=== PATIENT | female | born 1960 | race Caucasian/White ===

== ENCOUNTER 2018-07-01 08:30 | Outpatient (RCR) | payer MEDICAID, SELFPAY | END 2018-07-01 08:35 | disposition home or self-care (01) | LOC: PT 08:30 | PROVIDERS: Visit Provider Internal Medicine | DX: M54.5 Low back pain (principal); M54.31 Sciatica, right side | CPT/HCPCS: 97010; 97012; 97014; 97110; 97163; G0283 ==

== ENCOUNTER → 2018-10-28 09:38 | Outpatient (CLI) | payer MEDICAID, SELFPAY ==
--- NOTE | 2018-10-28 10:00 | XR_ITS ---
PROCEDURE: XR CHEST 2V CLINICAL HISTORY: COUGH, CONGESTION COMPARISON: No exams were available for comparison FINDINGS: The cardiomediastinal silhouette and pulmonary vascularity are within normal limits. There are increased markings in the right infrahilar region consistent with an area of infiltrate. The this may be in the right lower lobe No acute bony abnormalities. IMPRESSION: Right lower lobe infiltrate Dictated by: Reymundo Tovar MD 10/28/2018 10:22 Electronically signed by Reymundo Tovar MD in [place] 10/28/2018 10:22
--- NOTE | 2018-10-28 10:24 | ECG_ITS ---
APPROVED REPORT Exam: Resting ECG HR:59 bpm ECG Measurements Heart Rate 59 AXES LA 138 P 52 QRSd 72 QRS 37 QT 426 T 39 QTc 421 <Conclusion> Sinus bradycardia Otherwise normal ECG Electronically signed by : Shay Souza, 10/28/2018 11:50:31
== END ==
PROVIDERS: PCP Internal Medicine; Visit Provider Internal Medicine
DX: Z01.818 Encounter for other preprocedural examination (principal)
CPT/HCPCS: 71046; 93005

== ENCOUNTER → 2018-12-10 14:15 | Outpatient (CLI) | payer OTHER, SELFPAY ==
--- NOTE | 2018-12-10 14:20 | CT_ITS ---
PROCEDURE: CT CHEST WO CON Abnormal chest x-ray, dry cough CLINICAL INDICATION: COUGH,ABN CXR COMPARISON: XR CHEST 2V from 10/28/2018 TECHNIQUE: Axial images obtained with sagittal and coronal reformats. All CT scans at the facility use one or more dose reduction, viz: automated exposure control, ma/kV adjustment per patient size (including targeted exams where dose is matched to indication, i.e. head), or iterative reconstruction technique. FINDINGS: There is a small area of decreased density in the left lobe of the thyroid gland anteriorly at 9 mm. There is scattered small axillary and mediastinal lymph nodes. Normal heart size. There is some coronary artery calcification noted. No evidence of pericardial effusion. Small hiatal hernia suspected.. 5 mm noncalcified nodules present in the right lower lobe laterally image 39 series 3. 4 mm nodule right lower lobe anteriorly image 35 series 3. No effusions or infiltrates. Previously noted right infrahilar infiltrate has resolved. No central obstructing lesion. No acute bony anomalies. There is a 10 mm nodular opacity in the upper aspect of the left breast laterally. This may only be due to asymmetric fibroglandular tissue. Suggest correlation with mammogram and possible ultrasound. Upper abdomen: There is a 3.7 cm hypodense lesion in the central aspect of the liver consistent with a hepatic cyst. There is nonobstructing 2 mm stone in the mid polar region of the left kidney. IMPRESSION: 1. No acute finding 2. There is a noncalcified 3 mm and 5 mm nodule in the right lower lobe. These are nonspecific. Consider six-month follow-up to confirm short term stability. A the 3. Possible left breast nodule. Please correlate with mammogram and possible ultrasound Dictated by: Reymundo Tovar MD 12/11/2018 06:58 Electronically signed by Reymundo Tovar MD in [place] 12/11/2018 06:58
== END ==
PROVIDERS: PCP Internal Medicine; Visit Provider Internal Medicine
DX: R05 Cough (principal); R93.89 Abnormal findings on diagnostic imaging of other specified body structures
CPT/HCPCS: 71250

== ENCOUNTER → 2019-07-28 15:22 | Outpatient (CLI) | payer OTHER, SELFPAY ==
--- NOTE | 2019-07-28 15:33 | XR_ITS ---
PROCEDURE: XR FINGER LT MIN 2V CLINICAL INDICATION: LT THUMB PAIN COMPARISON: No exams were available for comparison FINDINGS: No fracture or dislocation. No lytic or blastic change. There is normal mineralization. Minimal osteoarthritic changes are present at 1st metacarpophalangeal joint and interphalangeal joint with a small well-circumscribed calcific density the dorsal lateral aspect the interphalangeal joint which could be due to an old avulsion fracture. No acute fracture or dislocation evident. Other findings:None. IMPRESSION: Osteoarthritic change with suspected old avulsion fracture at the interphalangeal joint Dictated by: Reymundo Tovar MD 07/28/2019 15:49 Electronically signed by Reymundo Tovar MD in [place] 07/28/2019 15:49
== END ==
PROVIDERS: PCP Internal Medicine; Visit Provider Internal Medicine
DX: M79.645 Pain in left finger(s) (principal)
CPT/HCPCS: 73140

== ENCOUNTER 2020-01-03 10:31 | Emergency (ER) | payer OTHER, SELFPAY ==
[2020-01-03 10:45] VITALS: BP 129/85; PULSE 83; RESP 20; TEMP 36.7; O2SAT 98; BMI 23.9
--- NOTE | 2020-01-03 11:12 | HMH.EDUTC ---
[facility] Disposition Clinical Impression: Maxillary sinusitis, acute Qualifiers: Recurrence: non-recurrent Qualified Code(s): J01.00 - Acute maxillary sinusitis, unspecified Disposition: Home, Self-Care Condition on Discharge: Good Instructions: Sinusitis, DI for Sinusitis Additional Instructions: Start antibiotic patient to take as ordered for a full length of time even if you feel better. Sinus infections do not get better overnight. It may take 2-3 days to notice much improvement so be sure to use conservative measures as discussed for symptoms. Flonase 1 spray each nostril daily to help with nasal congestion, sinus and ear pressure/information Increase fluids Humidifier/vaporizer as needed Tylenol and ibuprofen as needed for fever or pain. If symptoms do not improve or get worse return or be seen in the ER Follow-up with primary care this week self isolate until covid test results are known Prescriptions: Fluticasone Propionate [Flonase 50mcg nasal spray 16gm] 1 spr NS DAILY 14 Days #1 bottle Transmission Status: Pending to [facility] Azithromycin [Zithromax 250mg tab] 250 mg PO DIRECTED #6 tab Transmission Status: Pending to [facility] Referrals: Shay Souza [Primary Care Provider] - Time of Disposition: 11:22 Medical Decision Making - Enoch Inquiry Pt receiving controlled substance: No Vital Signs: 01/03/20 10:45 Temperature 98.0 F Temperature Source Oral Pulse Rate [Right Brachial] 83 Respiratory Rate 20 Blood Pressure [Right Arm] 129/85 Blood Pressure Mean [Right Arm] 99 Blood Pressure Source [Right Arm] Automatic Cuff Blood Pressure Position [Right Arm] Sitting 02 Sat by Pulse Oximetry 98 Oxygen Delivery Method Room Air Orders (Tests/Meds): ORDERS Category Date Time Status Covid-19 Nasal PCR Sendout [facility] 01/03/20 11:12 Ordered [facility] HPI - General Chief complaint: Urgent Treatment Center Stated complaint: sinus pain Time Seen by Provider: 01/03/20 11:12 Mode of Arrival: Ambulatory Source of Information: Patient Limitations: No Limitations Description of Symptoms (Recalled from Triage Doc. by RN): PATIENT C/O SINUS PRESSURE/PAIN SINCE SUNDAY HEENT Symptoms (Recalled from RN notes): Yes Resp Symptoms (Recalled from RN notes): No Skin Symptoms (Recalled from RN notes): No MS Symptoms (Recalled from RN notes): No Functional Status (Recalled from RN notes): WNL - History of Present Illness Provider Complaint: 59 yr old female presents for sinus pressure, sinus congestion with yellow drainage and cough since . - Related Data Home Medications Medication Instructions Recorded Confirmed estradioL [Estradiol (Twice 1 each TD WEEKLY 01/03/20 01/03/20 Weekly)] Previous Rx's Medication Instructions Recorded Azithromycin [Zithromax 250mg 250 mg PO DIRECTED #6 tab 01/03/20 tab] Fluticasone Propionate [Flonase 1 spr NS DAILY 14 Days #1 bottle 01/03/20 50mcg nasal spray 16gm] Allergies Allergy/AdvReac Type Severity Reaction Status Date / Time No Known Allergies Allergy Verified 01/03/20 11:05 - Worker's Comp Is this a Worker's Comp case?: No [facility] History - Hepatitis A Screen Drug use history?: No High risk sexual behaviors?: No History of sexually transmitted infection?: No Currently employed?: No Childcare worker?: No Do you have indoor plumbing?: Yes Do you have electricity?: Yes Attestation statement:: This patient has been screened for Hepatitis A risk factors. I have reviewed the patient's past medical history: Yes - Social History Alcohol Intake: never Occupational Status: other ROS Obtained: Yes Systems reviewed as appropriate & no additional complaints - Constitutional Constitutional: Reports system reviewed and no additional complaints, except as docu, Denies fever(s) - Eyes Eyes: Reports system reviewed and no additional complaints, except as docu, Denies blurry vision - ENT Ear
[2020-01-03 11:30] VITALS: BP 129/85; PULSE 83; RESP 20; TEMP 36.7; O2SAT 98
[2020-01-04 09:03] LABS: Covid-19 Nasal PCR Sendout UK Not Detected
== END 2020-01-03 11:33 | disposition home or self-care (01) ==
PROVIDERS: Emergency Provider Nurse Practitioner Family; PCP Internal Medicine
DX: J01.00 Acute maxillary sinusitis, unspecified (principal); Z20.828 Contact with and (suspected) exposure to other viral communicable diseases
CPT/HCPCS: 99201; U0003

== ENCOUNTER 2020-04-29 12:03 | Emergency (ER) | payer OTHER, SELFPAY ==
[2020-04-29] VITALS (12 sets, daily range): BP systolic 120–138; BP diastolic 63–97; PULSE 70–95; RESP 17–18; TEMP 36.7; O2SAT 96–100; BMI 23.0
[2020-04-29 12:46] LABS: Sodium 140 mmol/L (136-145)
[2020-04-29 12:47] LABS: Basophils % 0.2 % (0.1-2.0); Eosinophils % 0.2 % (0.1-12.0); Hematocrit 38.6 % (37.0-47.0); Hemoglobin 12.8 g/dL (12.2-16.2); Lymphocytes # 2.4 K/mm3 (0.7-4.5); MANUAL DIFFERENTIAL MANUAL DIFFERENTIAL (MANUAL DIFF); Mean Corpuscular Hemoglobin 31.4 pg (27.0-31.2); Mean Corpuscular Volume 95.2 fl (81-99); Mean Platelet Volume 8.7 fl (7.4-10.4); Monocytes # 0.5 K/mm3 (0.1-1.0); Monocytes % 2.8 % (1.7-9.3); Neutrophils % 82.8 % (37.0-80.0); Platelet Count 251 K/mm3 (142-424); Potassium 3.7 mmoL/L (3.5-5.1); Red Blood Count 4.06 M/mm3 (4.20-5.40); Red Cell Distribution Width 13.2 % (11.5-17.5); White Blood Count 16.9 K/mm3 (4.8-10.8)
[2020-04-29 12:48] LABS: Chloride 109 mmol/L (98-107)
[2020-04-29 12:49] LABS: Alanine Aminotransferase 13 U/L (12-78); Albumin Level 4.1 g/dl (3.5-5.0); Albumin/Globulin Ratio 1.3 (1.1-1.8); Alkaline Phosphatase 96 U/L (38-126); Anion Gap 10.7 mEq/L (5-15); Aspartate Amino Transferase 25 U/L (14-36); Bilirubin,Total 0.4 mg/dl (0.2-1.3); Blood Urea Nitrogen 19 mg/dl (7-17); Carbon Dioxide 24 mmol/L (22.0-30.0); Creatinine Clearance Estimated 70 mL/min (50-200); Estimated Glomerular Filt Rate 73 ml/min (>60); GFR (African American) 89 ML/MIN (>60); Globulin 3.1 g/dL (1.3-3.2); Total Protein,Serum 7.2 g/dl (6.3-8.2)
[2020-04-29 12:49] LABS: Microscopic, Urine URINE MICROSCOPIC (MICROSCOPIC)
[2020-04-29 12:50] LABS: Calcium 9.5 mg/dl (8.4-10.2); Glucose 168 mg/dl (74-100)
--- NOTE | 2020-04-29 12:50 | CT_ITS ---
PROCEDURE: CT ABDOMEN PELVIS W CON CLINICAL INDICATION: LLQ pain Left lower quadrant pain COMPARISON: CT CT CHEST WO CON from 12/10/2018 TECHNIQUE: IV Contrast: 75ML Isovue 370 Oral Contrast None Axial images obtained with sagittal and coronal reformats. All CT scans at the facility use one or more dose reduction, viz: automated exposure control, ma/kV adjustment per patient size (including targeted exams where dose is matched to indication, i.e. head), or iterative reconstruction technique. FINDINGS: LOWER THORAX: There is a small hiatal hernia ABDOMEN & PELVIS: A 4 cm cyst is present in the central aspect of the liver. This is a only slightly larger previously measuring 3.7 cm. In addition, there is a 5 mm hypodensity in the right hepatic lobe medially. This may also be due to small cyst too small to categorize. Stability may be confirmed with follow-up. The liver, adrenal glands, pancreas, have an unremarkable appearance. There is a partially duplicated left renal collecting system which may joint in the mid ureteral area. This is somewhat difficult to ascertain due to the lack of opacification of the left ureter. There is mild hydronephrosis and mild dilatation of both proximal ureters greater in the lower pole moiety. A stone is present in the distal left ureter just proximal to the ureteral vesicle junction. The stone measures approximately 2 mm. There is mild stranding of the left perinephric renal fat No intestinal obstruction or free air. There is a mild amount of retained colonic feces. No evidence of appendicitis. No evidence of diverticulitis. IMPRESSION: 1. 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 2. Moderate amount of retained colonic feces. 3. 4 cm hepatic cyst. 7 mm low-attenuation lesion medial aspect right hepatic lobe indeterminate. Consider short-term follow-up to confirm stability. Dictated by: Reymundo Tovar MD 04/29/2020 16:36 Reymundo Tovar MD in [place] 04/29/2020 16:36
[2020-04-29 12:53] LABS: Appearance,Urine CLEAR (Clear); Bilirubin,Urine Negative (Negative); Blood, Urine 3+ (Negative); Color,Urine YELLOW (Yellow); Glucose,Urine (UA) Negative (Negative); Ketones,Urine Negative (Negative); Leukocyte Esterase,Urine Negative (Negative); Nitrate,Urine Negative (Negative); PH,Urine 6.5 (5.0-8.5); Protein,Urine Negative (Negative); Specific Gravity, Urine 1.025 (1.005-1.030); Urobilinogen,Urine 0.2 EU/dl (0.2)
[2020-04-29 12:58] LABS: RBC,Urine 20-50 #/hpf (0-3)
[2020-04-29 12:58] LABS: Lymphocytes % 12 % (10-50); Monocytes % 2 % (2-9); Neutrophils % 86 % (42-76); Platelet Estimate Normal; RBC Morphology Normal; Total Cells Counted 100
[2020-04-29 13:07] LABS: Lipase 146 U/L (23-300)
--- NOTE | 2020-04-29 13:15 | HMH.EDGENADL ---
ED Disposition Clinical Impression: Left ureteral calculus Disposition: Home, Self-Care Condition on Discharge: Good Instructions: DI for Kidney Stones Additional Instructions: Additional instructions for KIDNEY STONE (URETERAL CALCULUS): See Dr. Craft as soon as possible for further evaluation. Drink plenty of fluids. Strain your urine and save any stones you catch. Return immediately if you develop a fever or have uncontrollable vomiting or uncontrollable pain. Additional instructions for CONTROLLED SUBSTANCES: You have been prescribed a medication that is a controlled substance. Controlled substances include pain medications known as opiates and sedative nerve medications known as benzodiazepines. Tramadol, fioricet, and gabapentin are also controlled substances. Some common opiates include: Codeine (such as Tylenol #3) Hydrocodone (Vicodin, Lortab, Lorcet, [place]) Oxycodone (Percocet, Percodan, Oxycodone, Oxy IR) Some common benzodiazepines include: Diazepam (Valium) Lorazepam (Ativan) Alprazolam (Xanax) Clonazepam (Klonopin) Oxazepam (Serax) All of these controlled substances are highly addictive and frequently abused. Misuse can and frequently does lead to addiction as well as overdose and . Medication should be stored in a locked cabinet or other secure storage unit. Do not store the medication in a motor vehicle. Short term supplies, 3 days or less, are prescribed because of the highly addictive nature of the medication. Any of the controlled substance medication NOT taken should be disposed of properly and NOT SAVED. The recommended method of disposing of unused medications is: Place the medicines in a sealable plastic bag. If the medicine is a solid, crush it or add water to dissolve it. Add something undesirable (cat litter, coffee grounds, etc.) Dispose of sealed bag in household trash Do not flush or pour unused medicines down a sink or drain. Controlled substances should not be shared, given away or sold. Because of the addictive nature and frequent abuse, these medications are sometimes stolen. These medications should be kept in a safe place where they cannot be stolen. Do not keep them in your car or purse. Lost or stolen prescriptions for controlled substances WILL NOT BE REFILLED in this emergency department, regardless of whether a police report was filed. Prescriptions: Oxycodone HCl/Acetaminophen [Percocet 5/325mg tablet] 1 tab PO Q6HP PRN #10 tablet PRN Reason: Moderate To Severe Pain Transmission Status: Sent to [facility] Tamsulosin HCl [Flomax 0.4mg capsule] 0.4 mg PO HS #10 cap.er.24h Transmission Status: Pending to [facility] Ondansetron [Zofran 4mg ODT] 4 mg PO TIDP PRN #10 tab.rapdis PRN Reason: Nausea And Vomiting Transmission Status: Pending to [facility] Referrals: Shay Souza [Primary Care Provider] - - Critical Care Critical Care Time: No Attestation: On 04/29/20, the high probability of a clinically significant, sudden or life threatening deterioration of the following system(s) required my full and direct attention, intervention and personal management. The time I documented below is in addition to time spent performing reported procedures but includes the following listed in this critical care notation. Medical Decision Making - Enoch Inquiry Pt receiving controlled substance: Yes Enoch was queried for this patient: Yes Risks and benefits of using a controlled substance: were discussed with pt by me Vital Signs: 04/29/20 12:04 04/29/20 12:20 04/29/20 12:36 Temperature 98.1 F Temperature Source Oral Pulse Rate 91 H 82 Pulse Rate [Right] 81 Respiratory Rate 18 Blood Pressure Blood Pressure [Right Arm] 138/87 Blood Pressure Mean Blood Pressure Mean [Right Arm] 104 02 Sat by Pulse Oximetry 98 100 100 04/29/20 12:37 04/29/20 12:38 04/29/20 12:39 Temperature Temperature
== END 2020-04-29 14:29 | disposition home or self-care (01) ==
PROVIDERS: Emergency Provider Emergency Medicine; PCP Internal Medicine
DX: N20.1 Calculus of ureter (principal)
CPT/HCPCS: 74177; 80053; 81001; 83690; 85007; 85025; 96374; 99282; J2405; Q9967

== ENCOUNTER → 2020-10-13 12:46 | Outpatient (CLI) | payer OTHER, SELFPAY ==
--- NOTE | 2020-10-13 12:53 | CT_ITS ---
PROCEDURE: CT CHEST WO CON CLINICAL INDICATION: LUNG NODULES COMPARISON: CT CT CHEST WO CON from 12/10/2018 TECHNIQUE: Axial images obtained with sagittal and coronal reformats. All CT scans at the facility use one or more dose reduction, viz: automated exposure control, ma/kV adjustment per patient size (including targeted exams where dose is matched to indication, i.e. head), or iterative reconstruction technique. FINDINGS: HEART AND MEDIASTINAL STRUCTURES: No change left thyroid nodule. Minimal coronary artery calcification. Small hiatal hernia. Small aortopulmonic lymph nodes not significantly changed. LUNGS AND PLEURAL SPACES: Stable 5 mm right lower lobe nodule 3/43. Stable 3 mm right lower lobe nodule 3/39. No new nodules evident. BONY STRUCTURES: No acute bony abnormalities apparent. UPPER ABDOMEN: 4.3 x 3.6 cm cyst within the central aspect of the liver in the right hepatic lobe slightly larger from the previous exam ADDITIONAL FINDINGS: Small nodes are present in the left axilla as before IMPRESSION: Stable CT appearance of the chest. No change in the 2 small right lower lobe pulmonary nodules. Other nonacute findings as described above. Dictated by: Reymundo Tovar MD 10/14/2020 08:52 Reymundo Tovar MD in [place] 10/14/2020 08:52
== END ==
PROVIDERS: PCP Internal Medicine; Visit Provider Internal Medicine
DX: R91.8 Other nonspecific abnormal finding of lung field (principal)
CPT/HCPCS: 71250

== ENCOUNTER 2022-01-06 10:54 | Emergency (ER) | payer OTHER, SELFPAY ==
[2022-01-06 13:30] VITALS: BP 125/82; PULSE 91; RESP 18; TEMP 36.9; O2SAT 99; BMI 24.0
--- NOTE | 2022-01-06 13:42 | EXP.UTC ---
Discharge Plan Disposition Patient Disposition: Home, Self-Care Condition: Good Prescriptions Prescriptions: New benzonatate [benzonatate] 100 mg capsule 100 mg PO TIDP PRN (Reason: Cough) Qty: 30 0RF oseltamivir [Tamiflu] 75 mg capsule 75 mg PO BID Qty: 10 0RF ondansetron 4 mg Tablet,Disintegrating 4 mg PO Q8H PRN (Reason: Nausea) Qty: 12 0RF No Action progesterone micronized 100 mg capsule 100 mg PO DAILY Rx Instructions: off 7 days; repeat cycle estradiol 1 EACH patch semiweekly 1 each TD WEEKLY Rx Instructions: TWICE WEEKLY fluticasone propionate 120 SPR/BOT bottle 1 spr NS DAILY 14 Days Qty: 1 0RF Referrals Follow up/Referrals: Shay Souza MD [Primary Care Provider] - See instructions Activity Restrictions/Add. Instructions Additional Instructions/Restrictions: Drink plenty of fluids. Take tylenol or ibuprofen for pain or fever. Take the medications as directed. Follow up with your regular doctor. GO TO THE ER FOR ANY WORSENING SYMPTOMS Clinical Impressions Clinical Impression: Influenza A Instructions Patient Instructions: DI for Influenza -- Adult, Oseltamivir Discharge ED Provider: Cesar Puckett [facility] General Stated complaint: congestion, sore throat, cough, fever Time Seen by Provider: 01/06/22 13:42 History of Present Illness Provider Complaint: He states that for the past 2 days he has had a sore throat, chills, fever, and a cough. Related Data Home Medications Medication Instructions Recorded Confirmed estradiol 0.025 mg/24 hr 1 each TD WEEKLY HORMONE 01/03/20 05/18/20 semiweekly transdermal patch progesterone micronized 100 mg 100 mg PO DAILY 05/18/20 05/18/20 capsule Previous Rx's Medication Instructions Recorded fluticasone propionate 50 1 spr NS DAILY 14 days ##1 01/03/20 mcg/actuation nasal spray,suspension benzonatate 100 mg capsule 100 mg PO TIDP PRN Cough #30 caps 01/06/22 ondansetron 4 mg disintegrating 4 mg PO Q8H PRN Nausea #12 tabs 01/06/22 tablet oseltamivir 75 mg capsule (Tamiflu) 75 mg PO BID #10 caps 01/06/22 Allergies Allergy/AdvReac Type Severity Reaction Status Date / Time No Known Allergies Allergy Verified 01/03/20 11:05 [facility] Medical History No significant past medical history Social History Smoking Status: Never smoker alcohol intake: never substance use type: denies use current occupational status: other Travel in the last 8 weeks: None household members: family housing: house ROS Obtained: Yes All systems reviewed & no additional complaints except as documented Constitutional Constitutional: Reports chills and Reports fever(s) Eyes Eyes: Denies eye discharge ENT Ears, Nose, Mouth, and Throat: Reports as per HPI Cardiovascular Cardiovascular: Denies chest pain Respiratory Respiratory: Denies chest congestion and Reports cough Gastrointestinal Gastrointestingal: Reports nausea; Denies abdominal pain, constipation, cramping, diarrhea or vomiting Musculoskeletal Musculoskeletal: Denies arthralgias Integumentary/Breasts Skin/Breast: Denies rash Neurologic Neurologic: Denies paresthesias Physical Exam General General appearance: alert and in no apparent distress Head Head exam: atraumatic, normocephalic and normal inspection Eye Eye exam: Present normal appearance, PERRL and EOMI ENT ENT exam: Present normal exam, normal oropharynx, mucous membranes moist, TM's normal bilaterally and normal external ear exam Neck Neck exam: Present normal inspection, full ROM and trachea midline; Absent meningismus or lymphadenopathy Chest Chest inspection: Present normal inspection and symmetric chest wall rise; Absent tenderness Respiratory Respiratory exam: Present normal lung sounds bilaterally; Absent respiratory distress Cardiovascular Card
[2022-01-06 13:43] LABS: UTC Influenza A Antigen Positive (Negative); UTC Influenza B Antigen Negative (Negative)
[2022-01-06 13:47] VITALS: BP 125/82; PULSE 91; RESP 18; TEMP 36.9; O2SAT 99
== END 2022-01-06 14:09 | disposition home or self-care (01) ==
PROVIDERS: Emergency Provider Nurse Practitioner Family; PCP Internal Medicine
DX: J10.1 Influenza due to other identified influenza virus with other respiratory manifestations (principal)
CPT/HCPCS: 87804; 99212; G0463

== ENCOUNTER → 2022-05-08 07:54 | Outpatient (CLI) | payer OTHER, SELFPAY ==
--- NOTE | 2022-05-08 08:03 | US_ITS ---
FINAL REPORT TECHNIQUE: Sonographic images of the abdomen were obtained in all four quadrants. CLINICAL HISTORY: FLANK PAIN, LLQ PAIN FINDINGS: LIVER: Homogeneous. There is a 4.5 cm cystic lesion in the liver. No other lesion is identified. GALLBLADDER: There are small echogenic foci along the gallbladder wall, some of which are non dependent and favored to represent small polyps. No shadowing gallstones are identified. There is no wall thickening or pericholecystic fluid. The common duct measures 3 mm. This is within normal limits for age. PANCREAS: Unremarkable. RIGHT KIDNEY: 10.2 cm. No hydronephrosis, mass or stone. LEFT KIDNEY: 10.0 cm. There are small left renal cysts. There is no hydronephrosis. SPLEEN: 8.4 cm. No focal splenic lesion. AORTA/IVC: No abdominal aortic aneurysm. Visualized IVC within normal limits. OTHER: No ascites. IMPRESSION: 1. Hepatic cyst and left renal cysts. 2. Probable small gallbladder polyps. Reviewed, Interpreted and Dictated by Marizol Segundo MD Transcribed by Jerrica Gaytan Authenticated and [facility]
--- NOTE | 2022-05-08 08:03 | XR_ITS ---
FINAL REPORT CLINICAL HISTORY: LUNG NODULE COMPARISON: October 2018 FINDINGS: Two views of the chest were obtained. The heart size and pulmonary vascularity are within normal limits. The mediastinum is normal. No acute infiltrate is identified. There is no pneumothorax. The bony thorax is intact. IMPRESSION: No acute cardiopulmonary process. Reviewed, Interpreted and Dictated by Marizol Segundo MD Transcribed by Sanjay So Authenticated and . [facility]
[2022-05-08 09:14] LABS: Basophils # 0.1 K/mm3 (0-0.2); Basophils % 0.7 % (0.1-2.0); Eosinophils # 0.2 K/mm3 (0.0-0.4); Eosinophils % 2.3 % (0.1-12.0); Hematocrit 41.6 % (37.0-47.0); Hemoglobin 13.6 g/dL (12.2-16.2); Lymphocytes # 2.6 K/mm3 (0.7-4.5); Lymphocytes % 34.1 % (10-50); Mean Corpuscular HGB Conc 32.8 g/dL (31.8-35.4); Mean Corpuscular Hemoglobin 31.3 pg (27.0-31.2); Mean Corpuscular Volume 95.6 fl (81-99); Mean Platelet Volume 8.2 fl (7.4-10.4); Monocytes # 0.4 K/mm3 (0.1-1.0); Monocytes % 4.9 % (1.7-9.3); Neutrophils # 4.4 K/mm3 (1.8-7.8); Platelet Count 307 K/mm3 (142-424); Red Blood Count 4.35 M/mm3 (4.20-5.40); Red Cell Distribution Width 13.3 % (11.5-17.5); White Blood Count 7.5 K/mm3 (4.8-10.8)
[2022-05-08 10:08] LABS: Alanine Aminotransferase 17 U/L (12-78); Albumin Level 3.9 g/dl (3.5-5.0); Albumin/Globulin Ratio 1.6 (1.1-1.8); Alkaline Phosphatase 90 U/L (38-126); Anion Gap 5.6 mEq/L (5-15); Aspartate Amino Transferase 24 U/L (14-36); Bilirubin,Total 0.4 mg/dl (0.2-1.3); Blood Urea Nitrogen 19 mg/dl (7-17); Calcium 8.9 mg/dl (8.4-10.2); Carbon Dioxide 29 mmol/L (22.0-30.0); Chloride 105 mmol/L (98-107); Cholesterol 188 mg/dl (140-200); Estimated Glomerular Filt Rate 85 ml/min (>60); GFR (African American) 103 ML/MIN (>60); Globulin 2.4 g/dL (1.3-3.2); Glucose 88 mg/dl (74-100); HDL Cholesterol 47 mg/dl (40-60); Potassium 4.6 mmoL/L (3.5-5.1); Sodium 135 mmol/L (136-145); Total Protein,Serum 6.3 g/dl (6.3-8.2); Triglycerides 72 mg/dl (30-150); VLDL Cholesterol 14 mg/dL (0-40)
[2022-05-08 10:19] LABS: Direct LDL Cholesterol 108.27 mg/dL (100-129)
[2022-05-08 10:48] LABS: 25-OH Vitamin D, Total 41.9 ng/mL (30-100)
[2022-05-08 10:55] LABS: Erythrocyte Sedimentation Rate 31 mm/hr (0-30)
== END ==
PROVIDERS: PCP Internal Medicine; Visit Provider Internal Medicine
DX: R10.32 Left lower quadrant pain (principal); R10.9 Unspecified abdominal pain; R91.8 Other nonspecific abnormal finding of lung field; E78.5 Hyperlipidemia, unspecified; R53.83 Other fatigue
CPT/HCPCS: 36415; 71046; 76700; 80053; 80061; 82306; 85025; 85651

== ENCOUNTER → 2022-10-10 09:25 | Outpatient (CLI) | payer OTHER, SELFPAY ==
[2022-10-10 10:45] LABS: Blood Urea Nitrogen 16 mg/dl (7-17); Estimated Glomerular Filt Rate 85 ml/min (>60); GFR (African American) 103 ML/MIN (>60)
== END ==
PROVIDERS: PCP Internal Medicine; Visit Provider Internal Medicine
DX: R07.9 Chest pain, unspecified (principal); R91.8 Other nonspecific abnormal finding of lung field; R10.9 Unspecified abdominal pain; G58.0 Intercostal neuropathy
CPT/HCPCS: 36415; 82565; 84520

== ENCOUNTER → 2022-12-27 08:54 | Outpatient (POV) | payer OTHER, SELFPAY ==
--- NOTE | 2022-12-27 09:09 | EXP.PAIN.OV ---
HPI Data of Consult Patient: new to practice Consult date: 12/27/22 Requesting Physician: Gaye Nicholson APRN Primary Care Provider: Shay Souza MD Consult Narrative Reason for consult: Mid back pain, left rib pain History of present illness: Ms. Winslow is a 62 year old female who presents today as a new patient. She is referral from Dr. Souza's office. Today she rates her pain a 2 out of 10. Patient states her pain is all in her mid back with radiating symptoms into her left ribs. Patient states this has been going on for approximately 8 to 9 months. Patient denies any specific trauma or injury that initially led to her symptoms. She does state that it is a throbbing sensation with squeezing and pressure into her left ribs. Patient denies any previous surgery or injection history. Patient does state the pain can be very random and come and go. 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 Patient has tried Tylenol and ibuprofen along with heat and ice and topicals with no additional relief. Patient has in the past had physical therapy for low back and sciatica pain. Patient has also tried TENS unit. Patient does state that she had a CT of her thoracic spine done at [facility].Patient is not on any scheduled medications. Her Enoch has been reviewed and is appropriate. CC: Gaye Nicholson APRN [facility] Disclaimer: The information contained in this section may have been updated after the patient was seen, as this information can be updated by other users. Medical History (Updated 12/27/22 @ 09:12 by Gaye Nicholson APRN) Arthritis Kidney stones Surgical History (Updated 12/27/22 @ 09:01 by Bridget Wood RN) H/O colonoscopy Previous section Family History (Updated 12/27/22 @ 09:01 by Bridget Wood RN) Other Coronary artery disease Social History (Updated 12/27/22 @ 09:02 by Bridget Wood RN) Smoking Status: Never smoker alcohol intake: never substance use type: denies use current occupational status: employed Travel in the last 8 weeks: None household members: family housing: house Review of Systems Review of Systems Review of systems:: pertinent systems reviewed and negative unless documented below Review of systems (narrative): Review of Systems: General: No recent weight changes, no fever, no sleep disturbances Respiratory: No cough, no shortness of air, no recurring pulmonary infections Cardiovascular/peripheral vascular: No chest pain, no palpitations, no edema, no shortness of breath Gastrointestinal: No new onset incontinence, normal bowel movements reported Genitourinary: No new onset incontinence Musculoskeletal: Mid back pain, left rib pain Psychiatric: [Normal mood/affect] Neurological: [Denies weakness in extremities], [denies balance issues] Meds Home Medications and Allergies Home Medications Medication Instructions Recorded Confirmed Type estradiol 0.025 mg/24 hr 1 each TD WEEKLY HORMONE 01/03/20 12/27/22 History semiweekly transdermal patch fluticasone propionate 50 1 spr NS DAILY 14 days ##1 01/03/20 12/27/22 Rx mcg/actuation nasal spray,suspension progesterone micronized 100 mg 100 mg PO DAILY 05/18/20 12/27/22 History capsule New Prescriptions to Start Prescriptions: Allergies Allergy/AdvReac Type Severity Reaction Status Date / Time No Known Allergies Allergy Verified 01/03/20 11:05 Objective Narrative: Physical Exam: General: Alert and oriented x3, no acute distress, pleasant and cooperative Lungs: Respirations even and unlabored, symmetrical chest expansion Eyes: PERRL Musculoskeletal: Flexion and extension of thoracic [spine] somewhat guarded secondary to pain, [antalgic gait noted] Neurological: Speech clear, no gross sensory deficit Additional findings Additional findin
[2022-12-27 09:11] VITALS: BP 131/75; PULSE 84; RESP 18; O2SAT 97; BMI 23.7
== END ==
PROVIDERS: PCP Internal Medicine; Visit Provider Nurse Practitioner Family
DX: M54.6 Pain in thoracic spine (principal); M54.14 Radiculopathy, thoracic region; R07.81 Pleurodynia
CPT/HCPCS: 99202; G0463

== ENCOUNTER → 2023-01-11 09:14 | Outpatient (CLI) | payer OTHER, SELFPAY ==
--- NOTE | 2023-01-11 09:27 | ECG_ITS ---
APPROVED REPORT Exam: Resting ECG HR:73 bpm ECG Measurements Heart Rate 73 AXES DC 141 P 48 QRSd 82 QRS 37 QT 378 T 32 QTc 403 Conclusion SINUS RHYTHM NORMAL ECG Electronically signed by : Shay Souza MD 01/15/2023 16:32:15
--- NOTE | 2023-01-11 09:31 | XR_ITS ---
FINAL REPORT CLINICAL HISTORY: Encounter for preprocedural cardiovascular examination COMPARISON: 01/11/2023 FINDINGS: Two views of the chest were obtained. The heart size and pulmonary vascularity are within normal limits. The mediastinum is normal. No acute pulmonary abnormality is identified. There is no pneumothorax. The bony thorax is intact. IMPRESSION: No active cardiopulmonary disease. Reviewed, Interpreted and Dictated by Fish Ho III, MD Transcribed by Charlene Steinberg Authenticated and [facility]
== END ==
LOC: RAD 09:16
PROVIDERS: PCP Internal Medicine; Visit Provider Internal Medicine
DX: Z01.818 Encounter for other preprocedural examination (principal)
CPT/HCPCS: 71046; 93005

== ENCOUNTER 2023-08-07 13:45 | Outpatient (CLI) | payer OTHER, SELFPAY ==
[2023-08-09 09:14] LABS: FSH 20.5 mIU/mL (25.8-134.8)
[2023-08-09 13:02] LABS: Estradiol 89.3 pg/mL (0.0-54.7); Testosterone,Total 6 ng/dL (3-67)
[2023-08-13 04:47] LABS: Testosterone,Free 0.4 pg/mL (0.0-4.2)
== END 2023-08-07 23:59 | disposition home or self-care (01) ==
LOC: LAB 13:46
PROVIDERS: PCP Internal Medicine; Visit Provider Obstetrics & Gynecology
DX: N95.1 Menopausal and female climacteric states (principal); Z79.890 Hormone replacement therapy
CPT/HCPCS: 36415; 82670; 83001; 84402; 84403

== ENCOUNTER 2023-10-01 09:08 | Outpatient (CLI) | payer OTHER, SELFPAY ==
--- NOTE | 2023-10-01 09:10 | XR_ITS ---
FINAL REPORT TECHNIQUE: Bone densitometry calculations of the lumbar spine and left hip were obtained. CLINICAL HISTORY: SCREENING FINDINGS: Using L1-4, the bone mineral density of the spine is 1.05 g/cm2, corresponding to T-score of 0.1. Using the left hip, the bone mineral density of the femoral neck is 0.79 g/cm2, corresponding to a T-score of -1.2. Using the right hip, the bone mineral density of the femoral neck is 0.87 g/cm2, corresponding to a T-score of -0.5. NOTE: T-score: Standard deviation compared with peak bone mass of young adult mean. *Following the recommendations of the International Society of Bone densitometry, classification of hip BMD is based on the lower of two T-scores; total hip or femoral neck. IMPRESSION: Diminished bone mineral density of the hips consistent with osteopenia. Normal bone mineral density of the lumbar spine. Reviewed, Interpreted and Dictated by Giles Gay MD Transcribed by Gris Zarate Authenticated and [facility]
== END 2023-10-01 23:59 | disposition home or self-care (01) ==
LOC: RAD 09:08
PROVIDERS: PCP Internal Medicine; Visit Provider Obstetrics & Gynecology
DX: Z13.820 Encounter for screening for osteoporosis (principal); Z78.0 Asymptomatic menopausal state; Z79.890 Hormone replacement therapy
CPT/HCPCS: 77080

== ENCOUNTER 2023-12-28 09:28 | Outpatient (CLI) | payer OTHER, SELFPAY ==
--- NOTE | 2023-12-28 09:34 | XR_ITS ---
PROCEDURE INFORMATION: Exam: XR Cervical Spine Exam date and time: 12/28/2023 9:50 AM Age: 63 years old Clinical indication: Pain; Cervicalgia; Additional info: Cervicalgia, episodes of bilateral arm weakness TECHNIQUE: Imaging protocol: Radiologic exam of the cervical spine. Views: 4 or 5 views. COMPARISON: No relevant prior studies available. FINDINGS: Bones/joints: Degenerative change of the C5-C6 and C6-C7 levels. Bilateral neural foramina narrowing C5-C6 right side greater than left Soft tissues: Unremarkable. IMPRESSION: Degenerative change at C5-C6 and C6-C7 levels. There is right greater than left neural foramina narrowing at C5-C6.
== END 2023-12-28 23:59 | disposition home or self-care (01) ==
LOC: RAD 09:29
PROVIDERS: PCP Internal Medicine; Visit Provider Internal Medicine
DX: M54.2 Cervicalgia (principal); R29.898 Other symptoms and signs involving the musculoskeletal system
CPT/HCPCS: 72052

== ENCOUNTER 2024-02-12 11:00 | Outpatient (RCR) | payer OTHER, SELFPAY ==
--- NOTE | 2024-01-14 13:50 | HMH.PTOPEV ---
PT Outpatient Evaluation Rehab PT Outpatient Evaluation Start: 01/14/24 13:34 Freq: Status: Active Protocol: Document 01/14/24 13:34 DEBBIE (Rec: 01/14/24 13:50 DEBBIE [id number]) E-signed By Jarrod Ayoub, PT Outpatient Therapy Subjective History Subjective History The patient is a 63 yof who presents to [facility] PT with complaints of L sided neck and shoulder pain. She reports that this pain began around 2- 3 months ago and does not believe there was a particular incident that caused it to begin to hurt. She reports that the pain is in her lower neck on the left side and goes down into her L shoulder blade area. She reports that is seems to be worse at the end of the day after she has been working or sitting in a chair for longer periods. She denies numbness and tingling, and the pain does not radiate distal to the elbow. 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 The patient does have family history of cervical stenosis/myelopathy. New diagnosis of cancer in past 12 No months? Chief Complaint Pain,Stiff Symptom Type Ache Symptoms Relieved By Prescription Meds Symptoms Aggravated By Physical Activity,Twisting, Lifting Prior Functional Limitations None Current Functional Limitations Reaching,Desk Work/Reading, Driving,Sleeping Symptom Description Intermittent Level of pain today (0-10) 1 Pain scale - at its best (0-10) 1 Pain scale - at its worst (0-10) 7 Cervical Eval Palpation Cervical Muscles L Cervical Paraspinal,L CT Junction,L Upper Trapezius,L Thoracic Paraspinals Cervical/Thoracic Palpation Findings Tenderness,Trigger Point Flexibility Deficits Upper Trapezius Muscle Length (L) Moderate Tightness Scalene Group Muscle Length (L) Moderate Tightness Pectoralis Minor Muscle Length (L) Severe Tightness Passive Joint Mobility Cervical PIVM Dec: L C4/5 L C5/6 L C6/7 L C7/T1 WNL: R OA L OA R AA L AA R C2/3 L C2/3 R C3/4 L C3/4 R C4/5 R C5/6 R C6/7 R C7/T1 AROM Cervical Spine Extension Active Range of 45 Motion (degrees) Cervical Spine Flexion Active Range of 60 Motion (degrees) Cervical Spine Right Lateral Flexion 24 Active Range of Motion (degrees) Cervical Spine Left Lateral Flexion 35 Active Range of Motion (degrees) Cervical Spine Right Rotation Active 50 Range of Motion (degrees) Cervical Spine Left Rotation Active 50 Range of Motion (degrees) MMT Left Deltoid (C5) 4- Good- Biceps Brachii Strength Grade 5 Normal Wrist Extension Strength Grade 5 Normal Triceps Brachii Strength Grade 5 Normal Wrist Flexion Strength Grade 5 Normal Extensor Pollicis Longus Strength Grade 5 Normal Finger Abduction Strength Grade 5 Normal DTR Rt Biceps 2+ Lt Biceps 2+ Rt Brachioradialis 2+ Lt Brachioradialis 2+ Rt Triceps 2+ Lt Triceps 2+ Altered Sensation Bilateral Comment Intact Special Test C-Spine Foraminal Compression (Spurling) Negative Left,Negative Right Test C-spine Verterbral Accessory Movements Central P/A [place],Left P/A that Elicit Symptoms Monroe C-Spine Foraminal Distraction Test Negative Neck Disability Index Neck Disability Index Section 1: Pain Intensity The pain is very mild at moment Section 2: Personal Care (washing, I can look after myself dressing, etc.) normally without causing extra pain Section 3: Lifting I can lift heavy weights but it gives extra pain Section 4: Reading I can read as much as I want to with slight pain in my neck Section 5: Headaches I have moderate headaches, which come frequently Section 6: Concentration I can concentrate fully when I want to with no difficulty Section 7: Work I can do as much work as I want to Section 8: Driving I can drive my car as long as I want with slight pain in my neck Section 9: Sleeping My sleep is midly disturbed (1 -2 hrs sleepless) Section 10: Recreation I am able to engage in all my recreation activities with some pain in NDI Score 10 Miscellaneous Dx PT Eval Objective Objective Increased kyphosis of thoracic spine Rhomboids: 3/5 BL Outpatient Therapy Assessment Impairments Problems/Impairmments Palpation Tenderness,Impaired Range of Motion,Impaired Strength,Impaired Desk/ Computer Activities,Subjective C/O Pain Prognosis Rehab Potential Good Comment Patient presents with deficits in Right lateral flexion of the cervical spine, tightness of the upper trapezius on the L side, and bilateral pectoralis minor tightness. The patient also presents with pain and decreased mobility with C-PAs and U-PAs (L) from C5-T4. These signs and symptoms are consistent with neck pain with mobility deficits. Skilled PT is indicated for this pt to address her current impairments and return this patient to her prior level of function. 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 Number of Weeks 8 Decreased Palpation Tenderness Yes: 0/4 Increase Range of Motion Yes: PIVMs to C5-T4 WNL Increase Strength Yes: 5/5 to rhomboids Decrease Subjective C/O Pain Yes: 2/10 at worst Patient to be Ind w/ Advanced HEP Yes Outpatient Therapy Plan of Care Treatment Plan May Include Therapeutic Exercise Including Home Yes Exercise Program Manual Therapy Techniques Yes Neuromuscular Re-education Yes Therapeutic Activities to Return to Yes Previous Functional/Work Level ADL/Self Care Education Yes Mechanical Traction Yes Dry Needling Yes Thermal Modalities Yes Electrical Stimulation Yes Manual Lymphatic Drainage Yes Eval/Re-Eval Yes Frequency Times per week 2 Duration Number of Weeks 8 Addendums This patient is a candidate for social No or vocational rehab? Patient/Guardian verbally acknowledges Yes understanding of treatment program and consents to further treatment? Patient/Guardian verbally acknowledges Yes understanding of diagnosis, prognosis and goals for treatment? Eval Complexity PT Charges 58363 - Moderate Complexity Shoulder/Elbow Eval Shoulder Objective Measurements Elbow Objective Measurements PHYSICIAN CERTIFICATION: I certify the specified therapy services for Jeannine Winslow are required, authorized, and reviewed every 30 days.
== END 2024-02-12 23:59 | disposition home or self-care (01) ==
LOC: PT 11:00
PROVIDERS: PCP Internal Medicine; Visit Provider Internal Medicine
DX: M54.2 Cervicalgia (principal); M54.9 Dorsalgia, unspecified; M62.838 Other muscle spasm; R29.898 Other symptoms and signs involving the musculoskeletal system
CPT/HCPCS: 97014; 97035; 97110; 97140; 97163; G0283